=== PATIENT | male | born 1965 | race Caucasian/White ===

== ENCOUNTER → 2020-06-10 12:13 | Outpatient (CLI) | payer BC, SELFPAY ==
--- NOTE | ~2020-06-10 | MR_ITS ---
EXAMINATION: MR cervical spine wo con DATE: 06/10/2020 12:56 INDICATION: Cervical disc disorder with radiculopathy. TECHNIQUE: Magnetic resonance imaging (MRI) of the cervical spine was performed without intravenous c ontrast. Sequences included sagittal T2-weighted FSE, sagittal T2-weighted FS FSE, sagittal T1-weight ed FSE, axial MERGE, and axial T2-weighted FSE. COMPARISON: Cervical spine MRI 12/24/2014 FINDINGS: There is 7 degrees levocurvature of cervical spine. Vertebral body heights are normal. Ther e is moderately decreased disc height at C3-C4, C5-C6, C6-C7, and C7-T1 and mildly decreased disc hei ght at C4-C5. The spinal cord signal intensity is normal. The following disc levels are specifically discussed: C2-C3: There is a central extrusion. There is mild bilateral uncovertebral joint osteoarthritis. Ther e is mild bilateral facet joint osteoarthritis. There is no neural foraminal stenosis. There is no ce ntral canal stenosis. C3-C4: The disc is bulging. There is severe bilateral uncovertebral joint osteoarthritis. There is mi ld bilateral facet joint osteoarthritis. There is moderate right and mild left neural foraminal steno sis. There is mild central canal stenosis. C4-C5: The disc is bulging. There is mild right and moderate left uncovertebral joint osteoarthritis. There is moderate right and mild left facet joint osteoarthritis. There is mild bilateral neural for aminal stenosis. There is mild central canal stenosis. C5-C6: The disc is bulging. There is severe bilateral uncovertebral joint osteoarthritis. There is mi ld bilateral facet joint osteoarthritis. There is severe right and moderate left neural foraminal radha nosis. There is mild central canal stenosis. C6-C7: The disc is bulging. There is severe bilateral uncovertebral joint osteoarthritis. There is se pema right and moderate left facet joint osteoarthritis. There is moderate right and severe left neur al foraminal stenosis. There is mild central canal stenosis. C7-T1: The disc is bulging. There is severe bilateral uncovertebral joint osteoarthritis. There is se pema right and mild left facet joint osteoarthritis. There is moderate bilateral neural foraminal radha nosis. There is mild central canal stenosis. IMPRESSION: 1. Severe cervical spondylosis, stable from 12/24/2014. Reviewed, dictated and finalized at location A. VISION NEWS PRODUCER
--- NOTE | ~2020-06-10 | XR_ITS ---
XR_CERV2-3V_CR DATE: 06/10/2020 13:15 INDICATION: Cervical disc disorder, radiculopathy TECHNIQUE: Flexion, extension and neutral lateral views. AP view COMPARISON: None FINDINGS: There is straightening of the cervical spine. There is minimal anterolisthesis at C4-5 in neutral and flexion, reduced in extension. There is moderate degenerative disc disease at C3-4. There is moderately severe degenerative disc disease at C5-6 and C6-7 with prominent spurring. C1 and C2 are normally aligned and the odontoid process is intact. No fracture or dislocation or lock ed facet or prevertebral soft tissue swelling is detected. IMPRESSION: Straightening Minimal anterolisthesis at C4-5 Multilevel degenerative disc disease Reviewed, dictated and finalized at Location A. Reviewed, dictated and finalized at location A. INE DESIGNER
== END ==
PROVIDERS: Visit Provider Neurological Surgery
DX: M50.120 Mid-cervical disc disorder, unspecified level (principal); M47.896 Other spondylosis, lumbar region
CPT/HCPCS: 72040; 72141

== ENCOUNTER 2021-10-12 11:23 | Emergency (ER) | payer BC, SELFPAY ==
--- NOTE | ~2021-10-12 | XR_ITS ---
XR chest 2V DATE: 10/12/2021 11:58 INDICATION: Palpitations. Mid back pain. TECHNIQUE: PA and lateral views COMPARISON: None FINDINGS: Lower cervical surgical spine fusion. Normal heart size. No hilar or mediastinal enlargement. Mild aortic arch calcification. No pulmonary infiltrate or consolidation, pleural effusion or pulmonary vascular congestion or pneumothorax. Degenerative change of the thoracic and lumbar spine. IMPRESSION: No active cardiopulmonary disease Reviewed, dictated and finalized at location A.
--- NOTE | ~2021-10-12 | XR_ITS ---
EXAMINATION: XR thoracic spine 3V DATE: 10/12/2021 12:35 INDICATION: Upper thoracic back pain. TECHNIQUE: 3 views of thoracic spine were obtained. COMPARISON: None. FINDINGS: There is 3 degrees dextrocurvature of thoracic spine. Vertebral body heights are normal. Th ere are changes of anterior fusion procedure from C5 to C7 with interbody devices and anterior plate and screws. There is mildly decreased disc height at multiple levels in mid and lower thoracic spine. There are endplate osteophytes at all thoracic levels. IMPRESSION: 1. Mild thoracic spondylosis. 2. Anterior fusion procedure from C5 to C7. Reviewed, dictated and finalized at location A.
--- NOTE | 2021-10-12 11:25 | ECG_ITS ---
Measurements Intervals [place] Rate: 72 P: 66 TX: 151 QRS: 14 QRSD: 99 T: 35 QT: 369 QTc: 405 Interpretive Statements SINUS RHYTHM POSSIBLE LEFT ATRIAL ENLARGEMENT [-0.1mV P WAVE IN V1/V2] NO PREVIOUS ECG AVAILABLE FOR COMPARISON Electronically Signed On 10-12-2021 15:34:47 CDT by Nikunj Velez MD
[2021-10-12 11:27] VITALS: BP 144/85; PULSE 79; RESP 20; TEMP 36.8; O2SAT 99
[2021-10-12 11:47] LABS: Basophils Absolute Auto 0.1 K/mm3 (0.0-0.1); Basophils Percent Auto 0.6 % (0.2-1.2); Eosinophils Absolute Auto 0.1 K/mm3 (0-0.3); Eosinophils Percent Auto 1.1 % (0-4.4); Hematocrit 45.2 % (42.0-52.0); Immature Granulocyte Absolute 0.05 K/mm3 (0.00-0.031); Immature Granulocyte Percent A 0.4 % (0-0.5); Lymphocytes Absolute Auto 1.99 K/mm3 (0.9-3.2); Lymphocytes Percent Auto 17.6 % (18.3-44.2); Mean Corpuscular HGB Conc 33.2 g/dl (32-36); Mean Corpuscular Hemoglobin 30.7 pg (26-34); Mean Corpuscular Volume 92.6 fl (80-100); Mean Platelet Volume 11.2 fl (7.4-10.4); Monocytes Absolute Auto 0.8 K/mm3 (0.1-0.6); Monocytes Percent Auto 7.2 % (2.6-8.5); Neutrophils Absolute Auto 8.3 K/mm3 (1.3-6.7); Neutrophils Percent Auto 73.1 % (45.5-73.1); Platelet Count Result 272 k/mm3 (150-375); Red Blood Count 4.88 M/mm3 (4.6-6.20); Red Cell Distribution Width 12.3 % (11.5-14.5); White Blood Count 11.3 K/mm3 (4.5-10.0)
[2021-10-12 11:57] LABS: Alanine Aminotransferase 28 U/L (6-50); Albumin Level 4.6 g/dL (3.5-5.1); Alkaline Phosphatase 66 U/L (38-126); Anion Gap 7 mmol/L (8-16); Aspartate Amino Transferase 30 U/L (17-59); Bilirubin,Total 0.5 mg/dL (0.2-1.3); Blood Urea Nitrogen 16 mg/dL (9-20); Calcium 9.2 mg/dL (8.4-10.2); Carbon Dioxide 30 mmol/L (22-30); Chloride 103 mmol/L (98-107); Estimated CRCL calculation 96 ml/min; Estimated Glomerular Filt Rate > 60; Glucose 116 mg/dL (65-110); Lipase 55 U/L (23-300); Potassium 3.9 mmol/L (3.4-5.0); Sodium 140 mmol/L (137-145)
[2021-10-12 12:01] VITALS: BP 154/74; PULSE 83; RESP 18; O2SAT 99
[2021-10-12 12:01] LABS: INR 1.1; Prothrombin Time 13.3 Seconds (11.1-14.7)
[2021-10-12 12:02] LABS: Partial Thromboplastin Time 28.8 SECONDS (22.3-36.8)
[2021-10-12 12:08] LABS: Troponin I < 0.012 ng/mL (0.000-0.034)
--- NOTE | 2021-10-12 12:15 | ED.ARRPALP ---
HPI - Arrhythmia/Palpitations General Chief Complaint: Arrhythmia/Palpitations Stated Complaint: palpitations Time Seen by Provider: 10/12/21 12:00 Source: RN notes reviewed History of Present Illness HPI narrative: Patient presents emergency department from home for palpitations. Patient states has been having heart palpitations for the past 2 weeks. States the palpitations are feeling like his heart is fluttering or racing and they last approximately 1 to 2 seconds and resolved. States that these episodes are worsened when he hits a bump in the car he states that with these episodes he has no chest pain or shortness of breath he states he does have chronic aching pain in his left upper back that has had since he had neck surgery approximately 1 year ago. States that pain is improved when he goes and gets a deep tissue massage or goes to his chiropractor he denies any fevers or chills abdominal pain nausea or vomiting denies any previous cardiac history Related Data Home Medications Medication Instructions Recorded Confirmed losartan 50 mg tablet 50 mg PO DAILY 07/13/21 07/13/21 rosuvastatin 5 mg tablet 5 mg PO DAILY 07/13/21 07/13/21 tizanidine 4 mg tablet 4 mg PO Q6H PRN 07/13/21 07/13/21 Allergies Allergy/AdvReac Type Severity Reaction Status Date / Time Sulfa (Sulfonamide Allergy Unknown Unknown Verified 07/13/21 09:44 Antibiotics) oxycodone AdvReac Intermediate Dizziness Verified 07/13/21 13:02 Review of Systems Review of Systems: Gen.: Denies fevers or chills Eyes: Denies eye pain or visual change ENT: Denies congestion Respiratory: Denies shortness of breath or cough CV: See HPI GI: Denies abdominal pain nausea, emesis or diarrhea Musculoskeletal: reports chronic upper back pain Neuro: Denies numbness, tingling, weakness or focal weakness Skin: Denies rash Except as documented, all other systems reviewed and negative [facility] Past Medical History Medical History Left ureteral stone 1999 Surgical History Surgical History (Updated 07/13/21 @ 12:52 by Harjit Saucedo MD) H/O sinus surgery rhinoplasty 2016 History of cervical spinal surgery Fusion 09/26 Family History Family History Father Lung cancer Hypercholesteremia Mother Alzheimer disease Sibling Hypertension Crohn's disease Social History Social History Smoking packs per day: 1.5 Smoking cigarettes per day: 30.0 Years smoked: 25 Smoking pack-years: 37.50 Smoking status: Former smoker Tobacco type: cigarettes and e-cigarettes/vaping Smoking end date: 05/09/16 Alcohol intake: former Alcohol use details: Quit 13 years Substance use: never Substance use type: does not use Gender identity (if verbalized by the patient): Male Sexual Orientation (if Verbalized by the Patient): Straight or Heterosexual Spiritual care concerns: No Agree to blood products: Yes Exam Narrative: APPEARANCE: No acute distress, nontoxic, resting in bed EYES: EOMI HEENT: Normocephalic, atraumatic, OMM RESPIRATORY: No respiratory distress Clear to auscultation bilaterally with no rhonchi wheezing or rales. CARDIOVASCULAR: Regular rate and rhythm without murmurs rubs or gallops. ABDOMINAL: Soft, nontender, nondistended, no rebound or guarding MUSCULOSKELETAl: Moves all extremities. No clubbing, cyanosis or edema. Back: No midline thoracic lumbar transfer patient tender palpation over left paravertebral muscles T2-4 NEURO: Awake and alert. Following commands, speech normal, no focal deficits SKIN:: Warm, dry. No rashes lesions or abrasions PSYCHIATRIC: Normal affect/mood, Course Course Emergency Course: Patient is remained on a awake overnight monitor throughout his stay in the ED with no arrhythmias noted Discussed with patient results of workup and diagnosi
[2021-10-12 13:23] VITALS: BP 155/77; PULSE 72; RESP 18; O2SAT 99
[2021-10-12 15:00] LABS: Troponin I < 0.012 ng/mL (0.000-0.034)
[2021-10-12 15:51] VITALS: PULSE 78; RESP 16
== END 2021-10-12 15:52 | disposition home or self-care (01) ==
PROVIDERS: Emergency Medicine; Emergency Provider Emergency Medicine
DX: R00.2 Palpitations (principal); Z87.442 Personal history of urinary calculi
CPT/HCPCS: 36415; 71046; 72072; 80053; 83690; 83735; 84443; 84484; 85025; 85610; 85730; 93005; 99284

== ENCOUNTER 2022-07-02 15:13 | Emergency (ER) | payer BC, SELFPAY ==
[2022-07-02] VITALS (11 sets, daily range): BP systolic 124–154; BP diastolic 80–92; PULSE 67–85; RESP 16–18; TEMP 36.6–37.2; O2SAT 98–100
--- NOTE | 2022-07-02 15:19 | ECG_ITS ---
Measurements Intervals [place] Rate: 70 P: 73 TX: 145 QRS: 40 QRSD: 95 T: 58 QT: 362 QTc: 393 Interpretive Statements SINUS RHYTHM WITHIN NORMAL LIMITS COMPARED TO ECG 10/12/2021 11:36:14 NO SIGNIFICANT CHANGES Electronically Signed On 07-02-2022 15:42:43 SHELF DRIER OPERATOR by Nik Mota M.D.
[2022-07-02 15:46] LABS: Basophils Absolute Auto 0.1 K/mm3 (0.0-0.1); Basophils Percent Auto 0.5 % (0.2-1.2); Eosinophils Absolute Auto 0.1 K/mm3 (0-0.3); Eosinophils Percent Auto 1.2 % (0-4.4); Hematocrit 47.5 % (42.0-52.0); Immature Granulocyte Absolute 0.03 K/mm3 (0.00-0.031); Immature Granulocyte Percent A 0.3 % (0-0.5); Lymphocytes Absolute Auto 1.94 K/mm3 (0.9-3.2); Lymphocytes Percent Auto 17.6 % (18.3-44.2); Mean Corpuscular HGB Conc 33.7 g/dl (32-36); Mean Corpuscular Hemoglobin 31.1 pg (26-34); Mean Corpuscular Volume 92.2 fl (80-100); Mean Platelet Volume 10.7 fl (7.4-10.4); Monocytes Absolute Auto 0.8 K/mm3 (0.1-0.6); Monocytes Percent Auto 7.2 % (2.6-8.5); Neutrophils Absolute Auto 8.1 K/mm3 (1.3-6.7); Neutrophils Percent Auto 73.2 % (45.5-73.1); Platelet Count Result 301 k/mm3 (150-375); Red Blood Count 5.15 M/mm3 (4.6-6.20)
[2022-07-02 16:00] LABS: Alanine Aminotransferase 39 U/L (6-50); Albumin Level 4.7 g/dL (3.5-5.1); Alkaline Phosphatase 85 U/L (38-126); Anion Gap 6 mmol/L (8-16); Aspartate Amino Transferase 31 U/L (17-59); Bilirubin,Total 0.7 mg/dL (0.2-1.3); Blood Urea Nitrogen 13 mg/dL (9-20); Calcium 8.9 mg/dL (8.4-10.2); Carbon Dioxide 28 mmol/L (22-30); Chloride 101 mmol/L (98-107); Estimated CRCL calculation 107 ml/min; Estimated Glomerular Filt Rate > 60; Glucose 106 mg/dL (65-110); Potassium 3.8 mmol/L (3.4-5.0); Sodium 135 mmol/L (137-145)
--- NOTE | 2022-07-02 18:45 | ED.DIZZY ---
HPI - Dizziness General Chief Complaint: Dizziness Stated Complaint: lightheaded Time Seen by Provider: 07/02/22 17:57 Source: patient Mode of arrival: ambulatory Limitations: no limitations History of Present Illness HPI Narrative: 57-year-old with a history of hypertension, CVA here with complaints of ongoing dizziness for last several months to year. Patient states that anytime he ate exposed to loud noises he gets extremely dizzy. Patient states that he has seen ENT for this had CT scan, MRI and is scheduled to see ENT doctor at [facility] next week. He worried that this could be from his heart so he wanted to get it checked out. He presently denies having any chest pain, shortness of breath. MD elicited complaint: dizziness Pertinent past history: inner ear problems and stroke Onset (ago): year(s) (1) Timing: gradual onset Severity: moderate Description: sense of movement and difficulty walking History of similar symptoms: Yes Exacerbating factors: movement/ambulation, change in body position and other (Loud sounds) Relieving factors: remaining still and lying down Associated symptoms: denies other symptoms Related Data Home Medications Medication Instructions Recorded Confirmed aspirin 81 mg tablet,delayed 81 mg PO DAILY 06/17/22 release (Adult Low Dose Aspirin) Allergies Allergy/AdvReac Type Severity Reaction Status Date / Time Sulfa (Sulfonamide Allergy Unknown Unknown Verified 07/02/22 18:05 Antibiotics) oxycodone AdvReac Intermediate Dizziness Verified 07/02/22 18:05 Review of Systems Review of Systems: All systems reviewed & are unremarkable except as noted in HPI and below Constitutional: Constitutional: Reports no additional constitutional complaints Eyes: Eyes: Reports no additional eye complaints ENT: Reports system reviewed and no additional complaints, except as documented and Reports as per HPI Cardiovascular: Cardiovascular: Reports no additional cardiovascular complaints Respiratory: Respiratory: Reports no additional respiratory complaints Gastrointestinal: Gastrointestinal: Reports no additional gastrointestinal complaints Musculoskeletal: Musculoskeletal: Reports no additional musculoskeletal complaints [facility] Past Medical History Medical History Left ureteral stone 1999 Surgical History Surgical History H/O sinus surgery rhinoplasty 2016 History of cervical spinal surgery Fusion 09/26 Family History Family History Father Lung cancer Hypercholesteremia Mother Alzheimer disease Sibling Hypertension Crohn's disease Social History Social History Smoking packs per day: 1.5 Smoking cigarettes per day: 30.0 Years smoked: 25 Smoking pack-years: 37.50 Smoking status: Former smoker Tobacco type: cigarettes and e-cigarettes/vaping Smoking end date: 05/09/16 Alcohol intake: former Alcohol use details: Quit 13 years Substance use: never Substance use type: does not use Living arrangements: with family Occupation/Education: occupation Gender identity (if verbalized by the patient): Male Sexual Orientation (if Verbalized by the Patient): Straight or Heterosexual Spiritual care concerns: No Agree to blood products: Yes Exam Narrative: GENERAL: Well-appearing, well-nourished, and in no acute distress. HEAD: Normocephalic, atraumatic. EYES: PERRLA and EOMI. NECK: Supple. CHEST: Clear to auscultation. No respiratory distress. HEART: Regular rate and rhythm. No murmur heard. Normal peripheral pulses. ABDOMEN: Soft, nontender, nondistended, normal active bowel sounds. EXTREMITIES: Normal range of motion. No edema. SKIN: Warm, dry, no rash. NEURO: No focal deficits. Alert and oriented x3. PSYCH: Normal mood and affect. Cour
== END 2022-07-02 19:12 | disposition home or self-care (01) ==
PROVIDERS: Emergency Provider Family Medicine; PCP Family Medicine Adolescent Medicine
DX: R42 Dizziness and giddiness (principal); I10 Essential (primary) hypertension; Z98.1 Arthrodesis status; Z86.73 Personal history of transient ischemic attack (TIA), and cerebral infarction without residual deficits; Z87.442 Personal history of urinary calculi; Z87.891 Personal history of nicotine dependence
CPT/HCPCS: 36415; 80053; 85025; 93005; 99284

== ENCOUNTER 2023-01-24 12:34 | Outpatient (CLI) | payer BC, SELFPAY ==
--- NOTE | ~2023-01-24 | MR_ITS ---
EXAMINATION: MR cervical spine wo con DATE: 01/24/2023 13:14 INDICATION: Paresthesias in both arms with neck motion. TECHNIQUE: Magnetic resonance imaging (MRI) of the cervical spine was performed without intravenous c ontrast. COMPARISON: Cervical spine MRI 06/10/2020 FINDINGS: There is 6 degrees levocurvature of cervical spine. Vertebral body heights are normal. Ther e are changes of anterior fusion procedure at C5-C6 and C6-C7 with interbody devices and anterior lupis te and screws. There is mildly decreased disc height at C3-C4 and C4-C5 and moderately decreased disc height at C7-T1. The spinal cord signal intensity is normal. The following disc levels are specifica lly discussed: C2-C3: The disc does not extend beyond the endplate margin. There is mild right and moderate left unc overtebral joint osteoarthritis. There is moderate bilateral facet joint osteoarthritis. There is no neural foraminal stenosis. There is no central canal stenosis. C3-C4: There is a central extrusion. There is severe bilateral uncovertebral joint osteoarthritis. Th ere is moderate right and mild left facet joint osteoarthritis. There is mild bilateral neural forami nal stenosis. There is mild central canal stenosis. C4-C5: There is a central protrusion. There is mild right and moderate left uncovertebral joint osteo arthritis. There is moderate right and mild left facet joint osteoarthritis. There is mild bilateral neural foraminal stenosis. There is no central canal stenosis. C5-C6: There is mild bilateral uncovertebral joint osteoarthritis. There is mild bilateral facet join t osteoarthritis. There is moderate bilateral neural foraminal stenosis. There is no central canal st enosis. C6-C7: There is severe bilateral uncovertebral joint hypertrophy. There is severe right and mild left facet joint osteoarthritis. There is moderate right and severe left neural foraminal stenosis. There is no central canal stenosis. C7-T1: The disc is bulging. There is severe bilateral uncovertebral joint osteoarthritis. There is se pema right and moderate left facet joint osteoarthritis. There is mild right and moderate left neural foraminal stenosis. There is no central canal stenosis. IMPRESSION: 1. Moderate cervical spondylosis. 2. Anterior fusion procedure at C5-C6 and C6-C7, new from 06/10/20. Reviewed, dictated and finalized at location E.
== END 2023-01-24 12:35 ==
LOC: MICIMG 12:40
PROVIDERS: PCP Family Medicine Adolescent Medicine; Visit Provider Family Medicine Adolescent Medicine
DX: R20.2 Paresthesia of skin (principal); M47.892 Other spondylosis, cervical region; Z98.1 Arthrodesis status
CPT/HCPCS: 72141

== ENCOUNTER → 2023-05-03 10:41 | Outpatient (CLI) | payer BC, SELFPAY ==
--- NOTE | ~2023-05-03 | CT_ITS ---
EXAMINATION:CT lung screening DATE: 05/03/2023 11:05 INDICATION: Lung cancer screening. Smoker who quit 5 years ago with 30 pack year history. TECHNIQUE: Computed tomography (CT) of the chest was performed without intravenous contrast. Automate d exposure control and iterative reconstruction technique were employed. The dose-length product (DLP ) was 90.58 mGy-cm. COMPARISON: Chest 2 views 10/12/21 FINDINGS: There is mild emphysema. There is mild scarring at right lung apex. There are a few 2 mm no dules in the lungs. There is mild atelectasis bilaterally. No pleural effusion. The heart size is nor mal. There are coronary artery calcifications. No pericardial effusion. There are bridging endplate o steophytes at multiple levels in the spine, consistent with diffuse idiopathic skeletal hyperostosis (DISH). There is severe thoracic spondylosis. There is mild chronic anterior wedging of L1 vertebral body. There are changes of anterior fusion procedure in cervical spine. IMPRESSION: 1. Lung-RADS category 2: Benign appearance or behavior. Continue annual screening with noncontrast lo w-dose chest CT in 12 months. Reviewed, dictated and finalized at location E. OYMENT EDUCATIONAL COORD IMPRESSION: 1. Lung-RADS category 2: Benign appearance or behavior. Continue annual screeni ng with noncontrast low-dose chest CT in 12 months.
--- NOTE | ~2023-05-03 | US_ITS ---
EXAMINATION: US carotid duplex BI DATE: 05/03/2023 11:07 INDICATION: Vertigo. Right-sided facial and arm numbness. TECHNIQUE: Grayscale, color Doppler, and pulsed Doppler images of the cervical carotid arteries were obtained. The degree of vessel stenosis is placed in one of the following categories: normal, <50%, 5 0-69%, >=70% but less than near-occlusion, near-occlusion, or total occlusion. Note that percent sten osis relative to normal distal artery lumen diameter is indirectly measured from velocity measurement s as described by Michael, et al. Radiology 2003; [id number]:[id number]. Notes: Normal: Peak systolic velocity <125 centimeters/sec and no plaque <50%. Peak systolic velocity <125 ( EDV <40; ICA/CCA PSV ratio <2.0; used these factors only a tandem lesions or low cardiac output or co ntralateral disease) 50-69 %: PSV 125-230 (EDV 40-100; ratio 2-4) >= 70% but less than near occlusion: PSV greater than 230 (EDV > 100; ratio> 4.0) Near Occlusion: PSV that is variable; markedly narrowed lumen Occlusion: Absent flow on color/spectral Doppler and no lumen on stuart scale. COMPARISON: None. FINDINGS: RIGHT: The right common carotid artery (CCA) peak systolic velocity (PSV) is 130 cm/s. The right internal ca rotid artery (ICA) PSV is 92 cm/s. The right ICA end-diastolic velocity (EDV) is 22 cm/s. The right I CA/CCA PSV ratio is 1. The external carotid artery (ECA) PSV is 114 cm/s. There is antegrade flow in the right vertebral artery. LEFT: The left CCA PSV is 114 cm/s. The left ICA PSV is 96 cm/s. The left ICA EDV is 35 cm/s. The left ICA/ CCA PSV ratio is 1.0. The ECA PSV is 154 cm/s. There is antegrade flow in the left vertebral artery. IMPRESSION: 1. Less than 50% stenosis in the right internal carotid artery by sonographic criteria. 2. Less than 50% stenosis in the left internal carotid artery by sonographic criteria. Reviewed, dictated and finalized at location L. OMER SERVICES SUPERVISOR IMPRESSION: 1. Less than 50% stenosis in the right internal carotid artery by sonographic c oli. 2. Less than 50% stenosis in the left internal carotid artery by sonographic cr patti.
== END ==
PROVIDERS: PCP Family Medicine Adolescent Medicine; Visit Provider Family Medicine Adolescent Medicine
DX: Z12.2 Encounter for screening for malignant neoplasm of respiratory organs (principal); Z87.891 Personal history of nicotine dependence; R42 Dizziness and giddiness; I65.23 Occlusion and stenosis of bilateral carotid arteries
CPT/HCPCS: 71271; 93880

== ENCOUNTER 2023-09-19 08:52 | Outpatient (CLI) | payer BC, SELFPAY ==
--- NOTE | ~2023-09-19 | XR_ITS ---
EXAMINATION: XR thoracic spine 3V DATE: 09/19/2023 09:14 INDICATION: Thoracic spine pain TECHNIQUE: One AP, lateral and lateral swimmer's views of the thoracic spine were obtained. COMPARISON: 10/12/2021 FINDINGS: Alignment is normal. Postoperative change of prior C5-C7 anterior spinal fusion with interbody bone g raft cages and anterior plate and screw fixation. Vertebral body heights are normal. No significant i nterval change in multilevel mild disc height loss with small degenerative endplate osteophytes throu ghout the thoracic spine. Visualized portion of the lungs are clear with no pleural effusion or pneum othorax. Cardiomediastinal silhouette is normal. IMPRESSION: 1. Mild thoracic spondylosis. Reviewed, dictated and finalized at location B.
== END 2023-09-19 08:53 ==
PROVIDERS: PCP Family Medicine Adolescent Medicine; Visit Provider Family Medicine Adolescent Medicine
DX: M47.894 Other spondylosis, thoracic region (principal)
CPT/HCPCS: 72072

== ENCOUNTER 2023-12-19 17:23 | Emergency (ER) | payer BC, SELFPAY ==
--- NOTE | ~2023-12-19 | XR_ITS ---
EXAMINATION: XR chest 2V Exam Date/Time: 12/19/2023 19:35 CDT HISTORY: dizzy Comparison: 10/12/2021. RESULT: Lines, tubes, and devices: ACDF hardware. Lungs and pleura: Clear. Cardiomediastinal silhouette: Stable. Other: No acute osseous or upper abdominal finding. IMPRESSION: No acute cardiopulmonary process. Reviewed, dictated and finalized at location K.
[2023-12-19 17:34] VITALS: BP 139/76; PULSE 67; RESP 15; TEMP 36.8; O2SAT 99
--- NOTE | 2023-12-19 20:16 | PC.NURSE ---
pt to intake desk, unable to wait any longer. Pt ride is here and not able to wait any longer or will have no ride home.
== END 2023-12-19 20:16 | disposition left against medical advice (07) ==
LOC: ANHED 20:30
PROVIDERS: Emergency Provider Emergency Medicine; PCP Family Medicine Adolescent Medicine
DX: R42 Dizziness and giddiness (principal)
CPT/HCPCS: 71046; 99199

== ENCOUNTER 2024-03-19 15:16 | Outpatient (CLI) | payer BC, SELFPAY ==
--- NOTE | ~2024-03-19 | CT_ITS ---
CT sinus wo con Ordering provider: Jhoan Parson, History: . Chronic sinusitis . Comparison: None. Technique: Thin slice Scans CT of the paranasal sinuses was performed with coronal and sagittal refor matted images. No IV contrast. . Automated exposure control and iterative reconstruction technique w ere employed. The dose-length product was 283.55 mGy-cm. Findings: NASAL SEPTUM: Mild nasal septal deviation. OSTEOMEATAL UNITS: The left is patent. The right is obliterated. NASAL TURBINATES AND NASOPHARYNX: Normal. Lisandra bullosa is seen bilaterally in the middle turbinates . PARANASAL SINUSES: Bilateral maxillary, ethmoid and frontal sinus disease. VISUALIZED MASTOIDS: Normal as visualized. BONES: Old fractures of the nasal bones. SUPERFICIAL SOFT TISSUES/VISUALIZED BRAIN PARENCHYMA: Normal. IMPRESSION: Bilateral maxillary, ethmoid and frontal sinus disease. Obliteration of the right ostiomeatal complex. Bilateral old nasal bones fracture. Reviewed, dictated and finalized at location A. TH AID
== END 2024-03-19 15:17 | disposition home or self-care (01) ==
PROVIDERS: PCP Family Medicine Adolescent Medicine; Visit Provider Otolaryngology
DX: J32.9 Chronic sinusitis, unspecified (principal)
CPT/HCPCS: 70486

== ENCOUNTER 2024-03-19 15:19 | Outpatient (CLI) | payer BC, SELFPAY ==
--- NOTE | ~2024-03-19 | CT_ITS ---
EXAMINATION: CT cervical spine wo con DATE: 03/19/2024 15:52 INDICATION: Cervical canal stenosis. TECHNIQUE: Computed tomography (CT) of the cervical spine was performed without intravenous contrast. Automated exposure control and iterative reconstruction technique were employed. The dose-length pro duct was 232.46 mGy-cm. COMPARISON: Cervical spine MRI 01/24/2023 FINDINGS: There is 8 degrees levocurvature of cervical spine. Vertebral body heights are normal. Ther e are changes of anterior fusion procedure from C5 to C7 with interbody devices and anterior plate an d screws. There is moderately decreased disc height at C3-C4, mildly decreased disc height at C4-C5, and moderately decreased disc height at C7-T1. The following disc levels are specifically discussed: C2-C3: There is mild bilateral uncovertebral joint osteoarthritis. There is mild bilateral facet join t osteoarthritis. There is mild right neural foraminal stenosis. There is no central canal stenosis. C3-C4: There is severe bilateral uncovertebral joint osteoarthritis. There is mild bilateral facet linda int osteoarthritis. There is moderate right and mild left neural foraminal stenosis. There is mild ce ntral canal stenosis. C4-C5: There is mild bilateral uncovertebral joint osteoarthritis. There is moderate right and mild l eft facet joint osteoarthritis. There is mild bilateral neural foraminal stenosis. There is mild cent ral canal stenosis. C5-C6: There is severe bilateral uncovertebral joint hypertrophy. There is moderate and mild left fac et joint osteoarthritis. There is moderate bilateral neural foraminal stenosis. There is no central c anal stenosis. C6-C7: There is severe bilateral uncovertebral joint hypertrophy. There is severe right and mild left facet joint osteoarthritis. There is moderate bilateral neural foraminal stenosis. There is mild yojana tral canal stenosis. C7-T1: There is severe bilateral uncovertebral joint osteoarthritis. There is severe right and mild l eft facet joint osteoarthritis. There is mild right and moderate left neural foraminal stenosis. Ther e is mild central canal stenosis. IMPRESSION: 1. Moderate cervical spondylosis, stable from 01/24/2023. 2. Anterior fusion procedure from C5 to C7. Reviewed, dictated and finalized at location A. K SHIPPER
== END 2024-03-19 15:20 | disposition home or self-care (01) ==
PROVIDERS: PCP Family Medicine Adolescent Medicine
DX: M47.892 Other spondylosis, cervical region (principal); Z98.1 Arthrodesis status; Z98.890 Other specified postprocedural states
CPT/HCPCS: 72125

== ENCOUNTER 2025-04-29 10:51 | Outpatient (CLI) | payer BC, SELFPAY ==
--- NOTE | ~2025-04-29 | MR_ITS ---
EXAMINATION: MR cervical spine wo con DATE: 04/29/2025 11:27 INDICATION: Neck pain. TECHNIQUE: Magnetic resonance imaging (MRI) of the cervical spine was performed without intravenous contrast. COMPARISON: Cervical spine MRI 01/24/2023 FINDINGS: There is 7 degrees levocurvature of cervical spine. Vertebral body heights are normal. There are changes of anterior fusion procedure from C5 to C7 with interbody devices and anterior plate and screws. There is moderately decreased disc height at C3-C4, mildly decreased disc height at C4-C5, moderately decreased disc height at C7-T1. The spinal cord signal intensity is normal. The following disc levels are specifically discussed: C2-C3: The disc does not extend beyond the endplate margin. There is mild bilateral uncovertebral joint osteoarthritis. There is mild bilateral facet joint osteoarthritis. There is mild right neural foraminal stenosis. There is no central canal stenosis. C3-C4: The disc is bulging. There is severe bilateral uncovertebral joint osteoarthritis. There is moderate right and mild left facet joint osteoarthritis. There is moderate right and mild left neural foraminal stenosis. There is mild central canal stenosis. C4-C5: The disc is bulging. There is mild bilateral uncovertebral joint osteoarthritis. There is moderate right and mild left facet joint osteoarthritis. There is mild bilateral neural foraminal stenosis. There is mild central canal stenosis. C5-C6: There is severe bilateral uncovertebral joint hypertrophy. There is mild right facet joint osteoarthritis. There is moderate bilateral neural foraminal stenosis. There is mild central canal stenosis. C6-C7: There is severe bilateral uncovertebral joint hypertrophy. There is severe right and mild left facet joint osteoarthritis. There is mild right and moderate left neural foraminal stenosis. There is mild central canal stenosis. C7-T1: The disc is bulging. There is severe bilateral uncovertebral joint osteoarthritis. There is mild bilateral facet joint osteoarthritis. There is mild bilateral neural foraminal stenosis. There is mild central canal stenosis. IMPRESSION: 1. Moderate cervical spondylosis, stable from 01/24/2023. 2. Anterior fusion procedures at C5-C6 and C6-C7. Reviewed, dictated and finalized at location E. ING SPECIALIST
--- NOTE | ~2025-04-29 | MR_ITS ---
EXAMINATION: MR thoracic spine wo con DATE: 04/29/2025 11:42 INDICATION: Pain in thoracic spine. TECHNIQUE: Magnetic resonance imaging (MRI) of the thoracic spine was performed without intravenous contrast. COMPARISON: Thoracic spine radiographs 09/19/2023 FINDINGS: There is 2 mm retrolisthesis of T11 on T12 and T12 on L1. There is mild chronic anterior wedging of T4-T12 vertebral bodies. There is mildly decreased disc height at T4-T5 and from T7-T8 through T9-T10 and moderately decreased disc height at T10-T11, T11-T12, and T12-L1. There is multilevel facet joint osteoarthritis, severe at many levels. There is mild neural foraminal stenosis at multiple levels on either side. On the right, there is moderate neural foraminal stenosis at T10-T11 and T11-T12. On the left, there is moderate neural frontal stenosis at T10-T11 and T11-T12. At T4-T5, there is a left central protrusion with mild central canal stenosis. At T6-T7, there is a left central extrusion with mild central canal stenosis. At T8-T9, there is a left central extrusion with mild central canal stenosis. At T9-T10, there is a central protrusion with mild central canal stenosis. From T10-T11 through T12- L1, the discs are bulging and mild central canal stenosis. The spinal cord signal intensity is normal. The conus medullaris is at L1. IMPRESSION: 1. Moderate thoracic spondylosis. Reviewed, dictated and finalized at location E. D TO [employer] TECH[employer]ICIAN
== END 2025-04-29 10:52 | disposition home or self-care (01) ==
LOC: MICIMG 10:52
PROVIDERS: PCP Family Medicine; Visit Provider Family Medicine
DX: M54.12 Radiculopathy, cervical region (principal); M54.14 Radiculopathy, thoracic region; Z98.1 Arthrodesis status
CPT/HCPCS: 72141; 72146